=== PATIENT | female | born 1925 | race Caucasian/White ===

== ENCOUNTER 2016-03-23 10:29 | Emergency (ER) | payer OTHER ==
[~2016-03-23] VITALS: Ht 152.4 cm; Wt 79.5 kg
[~2016-03-23 10:29] MED LIST: ADULT SUPPOSIT1 EACH PR; BP MED; CIMETIDINE400 MG PO; COLACE100 MG PO; DYAZIDE, MA1 CAPSULE PO; GENTLE LAXATIVE5 M1 PO; HYZAAR 100-21 TABLET PO; LASIX20 MG PO; LASIX40 MG PO; LOVASTATIN20 MG PO; MELOXICAM; MELOXICAM7.5 MG PO; PRADAXA75 MG PO; PREDNISONE20 M1 G-TUBE; RANITIDINE; ROXICET 5-5001 EACH PO; TRAMADOL HCL50 MG PO; VYTORIN; VYTORIN 10-101 EACH PO; WARFARIN SODIUM2 MG PO
[2016-03-23] MEDS ORDERED: PRADAXA75 MG PO (11:26)
[2016-03-23] MEDS ORDERED: NAPROXEN500 MG PO (14:31)
[2016-03-23] MEDS ORDERED: PREDNISONE20 MG PO (14:31)
[2016-03-23] MEDS ORDERED: LIDODERM 5% P1 PATCH TD (14:31)
[2016-03-23] MEDS ORDERED: FLEXERIL10 MG PO (14:31)
[2016-03-23 15:02] VITALS: BP 177/77
== END 2016-03-23 15:17 | disposition home or self-care (01) ==
LOC: EME 10:29
DX: M16.12 Unilateral primary osteoarthritis, left hip (principal); M54.32 Sciatica, left side; E11.9 Type 2 diabetes mellitus without complications; I11.0 Hypertensive heart disease with heart failure; I50.9 Heart failure, unspecified
CPT/HCPCS: 73502; 99281; 99283; G8978 GP CJ; G8979 GP CH; G8987 GO CI; G8988 GO CH; J1885; J3010; J7512